=== PATIENT | male | born 1990 | race Asian ===

== ENCOUNTER 2022-10-13 11:12 | Day surgery (SDC) | payer OTHER ==
[~2022-10-13] VITALS: Ht 180.3 cm; Wt 80.7 kg
[2022-10-13] MEDS ORDERED: MIDAZOLAM 5 MG/5 ML VIAL ONE (15:18)
[2022-10-13] MEDS ORDERED: fentaNYL citrate 0.05 MG/ML VIAL ONE (15:18)
[2022-10-13] MEDS ORDERED: MIDAZOLAM 2 MG/2 ML VIAL ONE (15:36)
[2022-10-13] MEDS ORDERED: MIDAZOLAM 5 MG/5 ML VIAL IV ONE (15:55)
== END 2022-10-13 16:38 | disposition home or self-care (01) ==
LOC: MOR 11:12 → MMU 12:19 → MOR 16:38
PROVIDERS: ATTEND Internal Medicine Gastroenterology
DX: R10.12 Left upper quadrant pain (principal); Z20.822 Contact with and (suspected) exposure to COVID-19
CPT/HCPCS: 36415; 43239; 86677; 87426; J2250; J3010